=== PATIENT | female | born 1975 | race American Indian/Alaskan Native ===

== ENCOUNTER 2017-07-26 08:10 | Outpatient (CLI) | payer BC ==
--- NOTE | 2017-07-26 08:50 | Mammography Report ---
Bilateral mammogram: Compared to 03/09/16. CAD study utilized. Findings: Predominance adipose tissue bilaterally. Focal architectural distortion within ill-defined density outer left breast. Smaller focal ill-defined density outer left breast along the line of the nipple. Benign density upper left breast without interval change. Focal architectural distortion outer mid right breast. Benign axillary nodes. Impression: Suspected areas of focal architectural distortion right and left breast. Recommend spot mag and sonographic examination. BI-RADS CATEGORY: 0 = Needs additional imaging evaluation ACR BI-RADS MAMMOGRAPHIC CODES: 0 = Needs additional imaging evaluation; 1 = Negative; 2 = Benign; 3 = Probably benign; 4 = Suspicious; 5 = Malignant; 6 = Known biopsy-proven malignancy COMMENT: 1. Dense breast tissue, i.e., adenosis, fibrocystic changes, etc., may obscure an underlying neoplasm. 2. Approximately 10% of cancers are not detected with mammography. 3. A negative mammography report should not delay biopsy if a clinically suspicious mass is present. COMMENT: Patient follow-up letters are generated in [employer].
== END 2017-07-26 08:11 | disposition home or self-care (01) ==
LOC: SPVWC 08:10
PROVIDERS: ATTEND Physician Assistant Medical
DX: Z12.31 Encounter for screening mammogram for malignant neoplasm of breast (principal)
CPT/HCPCS: 77067

== ENCOUNTER 2017-12-01 07:56 | Outpatient (CLI) | payer BC ==
--- NOTE | 2017-12-01 08:49 | Mammography Report ---
BILATERAL DIGITAL DIAGNOSTIC MAMMOGRAM : 12/01/17 07:56:00 CLINICAL: Recalled for bilateral asymmetries. COMPARISON:07/26/17 screening FINDINGS: Bilateral additional mammographic views were performed and are negative. IMPRESSION: Negative Mammogram. BI-RADS CATEGORY: 1 -- Negative RECOMMENDATION: Routine mammographic screening in one year. ACR BI-RADS MAMMOGRAPHIC CODES: 0 = Needs additional imaging evaluation; 1 = Negative; 2 = Benign; 3 = Probably benign; 4 = Suspicious; 5 = Malignant; 6 = Known biopsy-proven malignancy COMMENT: 1. Dense breast tissue, i.e., adenosis, fibrocystic changes, etc., may obscure an underlying neoplasm. 2. Approximately 10% of cancers are not detected with mammography. 3. A negative mammography report should not delay biopsy if a clinically suspicious mass is present. COMMENT: Patient follow-up letters are generated via our [employer] application.
== END 2017-12-01 07:57 | disposition home or self-care (01) ==
LOC: SPVWC 07:56
PROVIDERS: ATTEND Family Medicine
DX: R92.8 Other abnormal and inconclusive findings on diagnostic imaging of breast (principal)
CPT/HCPCS: 77066

== ENCOUNTER 2018-08-08 15:30 | Outpatient (CLI) | payer BC ==
--- NOTE | 2018-08-08 16:44 | Mammography Report ---
BILATERAL DIGITAL SCREENING MAMMOGRAM with CAD: 08/08/18 15:30:00 CLINICAL: Routine screening. COMPARISON:12/01/17, 07/26/17 03/09/16 and 03/06/14 FINDINGS: The breasts are heterogeneously dense, which may obscure small masses in the breasts have become progressively more dense over time. The patient denies estrogen therapy. Bilateral parenchyma asymmetries require distal imaging. No architectural distortion or suspicious calcifications. IMPRESSION: Bilateral asymmetries requiring further workup. BI-RADS CATEGORY: 0 -- Additional Imaging Evaluation Required RECOMMENDATION: Recall for bilateral spot compression views and bilateral breast ultrasound if needed. ACR BI-RADS MAMMOGRAPHIC CODES: 0 = Needs additional imaging evaluation; 1 = Negative; 2 = Benign; 3 = Probably benign; 4 = Suspicious; 5 = Malignant; 6 = Known biopsy-proven malignancy COMMENT: 1. Dense breast tissue, i.e., adenosis, fibrocystic changes, etc., may obscure an underlying neoplasm. 2. Approximately 10% of cancers are not detected with mammography. 3. A negative mammography report should not delay biopsy if a clinically suspicious mass is present. COMMENT: Patient follow-up letters are generated via our [employer] application.
== END 2018-08-08 15:31 | disposition home or self-care (01) ==
LOC: SPVWC 15:30
PROVIDERS: ATTEND Family Medicine
DX: Z12.31 Encounter for screening mammogram for malignant neoplasm of breast (principal)
CPT/HCPCS: 77067

== ENCOUNTER 2018-08-25 10:59 | Outpatient (CLI) | payer BC ==
--- NOTE | 2018-08-25 14:13 | Mammography Report ---
BILATERAL DIGITAL DIAGNOSTIC MAMMOGRAM and BILATERAL BREAST ULTRASOUND.: 08/25/18 10:59:00 CLINICAL: Recalled for bilateral asymmetries. COMPARISON:08/08/18 screening FINDINGS: Bilateral additional mammographic views were performed and demonstrates satisfactory effacement of asymmetries. Ultrasound of the outer right breast was performed and demonstrated a few benign cysts and no solid mass or shadowing. Ultrasound of the outer left breast was performed from 12 o'clock to 6 o'clock. A prominent fat lobule versus a solid oval mass at 12 o'clock 5 cm from the nipple measuring 6 x 4 x 6 mm. An oval solid mass at 1:30 o'clock 8 cm from the nipple measures 1.0 x 0.8 x 1.1 cm. This may be a lymph node with central blood flow demonstrated by color Doppler. A benign intramammary lymph node at 2 o'clock 5 cm from the nipple measures 0.9 x 0.6 x 0.6 cm. IMPRESSION: Benign right breast cysts and probably benign findings in the left breast. BI-RADS CATEGORY: 3 - - Probably Benign RECOMMENDATION: 6 month followup left breast ultrasound to reevaluate the ultrasound findings at 12 o'clock 5 cm from the nipple and at 1:30 o'clock 8 cm from the nipple. ACR BI-RADS MAMMOGRAPHIC CODES: 0 = Needs additional imaging evaluation; 1 = Negative; 2 = Benign; 3 = Probably benign; 4 = Suspicious; 5 = Malignant; 6 = Known biopsy-proven malignancy COMMENT: 1. Dense breast tissue, i.e., adenosis, fibrocystic changes, etc., may obscure an underlying neoplasm. 2. Approximately 10% of cancers are not detected with mammography. 3. A negative mammography report should not delay biopsy if a clinically suspicious mass is present. COMMENT: Patient follow-up letters are generated via our [employer] application.
== END 2018-08-25 11:00 | disposition home or self-care (01) ==
LOC: SPVWC 10:59
PROVIDERS: ATTEND Family Medicine
DX: N60.01 Solitary cyst of right breast (principal)
CPT/HCPCS: 77066

== ENCOUNTER 2019-03-06 11:02 | Outpatient (CLI) | payer BC ==
--- NOTE | 2019-03-07 08:12 | Ultrasound Report ---
LIMITED LEFT BREAST ULTRASOUND HISTORY: Follow-up probably benign lesions at 12:00 and 1:30 o'clock. COMPARISON: 08/25/2018 FINDINGS: Focused sonographic evaluation upon the upper outer location of the left breast demonstrate s a stable prominent fat lobule versus solid oval mass at 12:00 4 cm from the nipple measuring 7 x 4 x 6 mm. It has not changed. A stable oval solid heterogeneous hypoechoic smooth mass at 1:30 o'clock 7 cm from the nipple measuring 10 x 8 x 11 mm. A stable benign intramammary lymph node at 2:00 5 cm f rom the nipple measuring 7 x 6 x 6 mm. Focal hyperechoic fibrosis at 2:00 9 cm from the nipple produc es shadowing. IMPRESSION: Benign lesions at 12:00 5 cm from the nipple and at 1:30 o'clock 7 cm from the nipple. Be nign shadowing fibrosis at 2:00 9 cm from the nipple. Recommend routine mammographic screening. BIRADS 2: Benign Signer Name: Dexter Ugalde MD Signed: 03/07/2019 8:08 AM Workstation Name: [id number]
== END 2019-03-06 11:03 | disposition home or self-care (01) ==
LOC: SPVWC 11:02
PROVIDERS: ATTEND Family Medicine
DX: N60.32 Fibrosclerosis of left breast (principal)

== ENCOUNTER 2021-07-16 10:30 | Outpatient (CLI) | payer OTHER ==
--- NOTE | 2021-07-18 08:54 | Mammography Report ---
DIGITAL SCREENING MAMMOGRAM WITH CAD, 07/16/2021 CLINICAL INFORMATION / INDICATION: Routine screening mammography. SCREENING MAMMO TECHNIQUE: Digital bilateral 2D mammography was obtained in the craniocaudal and mediolateral obliqu e projections. This examination was interpreted with the benefit of Computer-Aided Detection analysis . COMPARISON: 03/09/2016 FINDINGS: Breast Density: The breasts are heterogeneously dense, which may obscure small masses. No dominant mass, suspicious calcifications, or architectural distortion in either breast. Largely unchanged nodular densities in the breasts, commonly fibroglandular or fibrocystic change. IMPRESSION: No mammographic evidence of malignancy. Follow up recommendation: Routine yearly BI-RADS Category 2: BENIGN. A "normal" or negative report should not discourage follow up or biopsy of a clinically significant f inding. A written summary of these findings will be mailed to the patient. The patient will be entered into a mammography reporting system which will generate a reminder letter for the patient's next appointmen t at the appropriate interval. [employer] recommends yearly mammograms starting at age 40 and continuing as l frances as a woman is in good health. Breast MRI is recommended for women with an approximate 20-25% or greater lifetime risk of breast cancer, including women with a strong family history of breast or ova charlie cancer or who have been treated for Hodgkin's disease. Signer Name: Johny Marcelino MD Signed: 07/18/2021 8:50 AM Workstation Name: [id number]
== END 2021-07-16 10:31 | disposition home or self-care (01) ==
LOC: SPVWC 10:30
PROVIDERS: ATTEND Nurse Practitioner
DX: Z12.31 Encounter for screening mammogram for malignant neoplasm of breast (principal)
CPT/HCPCS: 77067